=== PATIENT | male | born 1955 | race African-American/Black ===

== ENCOUNTER 2018-05-31 18:52 | Emergency (ER) | payer MEDICAID ==
[~2018-05-31] VITALS: Ht 175.3 cm; Wt 85.0 kg
[2018-06-01] MEDS ORDERED: IBUPROFEN 600MG TABLET PO ONE (00:30)
[2018-06-01 03:00] VITALS: BP 138/84
== END 2018-06-01 04:18 | disposition home or self-care (01) ==
LOC: ER 18:52
DX: M25.561 Pain in right knee (principal); I10 Essential (primary) hypertension
CPT/HCPCS: 73562; 99283; L1830; Z7610

== ENCOUNTER 2019-04-02 00:37 | Emergency (ER) | payer MEDICAID ==
[~2019-04-02] VITALS: Ht 177.8 cm; Wt 79.0 kg
[~2019-04-02 00:37] MED LIST: ABIL10 PO; CEPH-569 MT; SERT100T PO
[2019-04-02] MEDS ORDERED: HALOPERIDOL LACTATE 5MG/ML VIAL IM ONE (01:45)
[2019-04-02] MEDS ORDERED: LORAZEPAM 2MG/ML CPJ IM ONE (01:45)
[2019-04-02 06:40] LABS: BASOPHILS % 0.9 % (0.0-2.0); EOSINOPHILS % 2.7 % (0.0-5.0); HEMATOCRIT. 36.9 % (42.0-52.0); HEMOGLOBIN. 12.7 g/dL (14.0-18.0); LYMPHOCYTES % 27.7 % (20.0-50.0); MEAN CORPUSCULAR VOLUME 87.3 fL (80.0-94.0); MEAN PLATELET VOLUME 7.2 fl (7.4-10.4); MONOCYTES % 7.7 % (2.0-8.0); PLATELET 262 x1000/uL (130-400); RED BLOOD CELL COUNT 4.23 mill/uL (4.7-6.1); RED CELL DISTRIBUTION WIDTH 14.1 % (11.6-14.6)
[2019-04-02 06:50] LABS: CHLORIDE 110 mEq/L (98-107)
[2019-04-02 06:54] LABS: ETHANOL BLOOD < 10 mg/dL
[2019-04-02 07:10] LABS: CREATINE KINASE 1153 IU/L (39-308)
[2019-04-02 09:55] VITALS: BP 116/78
[2019-04-02 11:14] LABS: CLARITY URINE CLEAR (CLEAR); COLOR URINE YELLOW (YELLOW); KETONES URINE 1+ (NEGATIVE); LEUKOCYTE ESTERASE URINE NEGATIVE (NEGATIVE); NITRITE URINE NEGATIVE (NEGATIVE); OCCULT BLOOD URINE NEGATIVE (NEGATIVE); PH URINE 6.5 (4.5-8.0); PROTEIN URINE NEGATIVE (NEGATIVE); SPECIFIC GRAVITY URINE 1.013 (1.005-1.030); UROBILINOGEN URINE 0.2 E.U./dL (0.2-1.0)
[2019-04-02 11:50] LABS: *AMPHETAMINES SCREEN URINE NEGATIVE (NEGATIVE); *BARBITURATES SCREEN URINE NEGATIVE (NEGATIVE); *BENZODIAZEPINES SCREEN URINE PRESUMTIVE POSITIVE (NEGATIVE); CANNABINOID URINE SCREEN PRESUMTIVE POSITIVE (NEGATIVE)
[2019-04-02 11:51] LABS: METHADONE URINE SCREEN NEGATIVE (NEGATIVE)
[2019-04-02 11:52] LABS: PHENCYCLIDINE URINE SCREEN PRESUMTIVE POSITIVE (NEGATIVE)
[2019-04-02 11:53] LABS: *COCAINE SCREEN URINE NEGATIVE (NEGATIVE); OPIATES URINE SCREEN NEGATIVE (NEGATIVE)
== END 2019-04-02 12:06 | disposition home or self-care (01) ==
LOC: EDUNIT# 00:37 → ER 00:37
DX: R41.82 Altered mental status, unspecified (principal); F16.10 Hallucinogen abuse, uncomplicated; E11.9 Type 2 diabetes mellitus without complications; I10 Essential (primary) hypertension; Z86.73 Personal history of transient ischemic attack (TIA), and cerebral infarction without residual deficits; E03.9 Hypothyroidism, unspecified; Z79.899 Other long term (current) drug therapy
CPT/HCPCS: 36415; 80053; 80305; 80307; 80320; 80329; 81003; 82550; 83690; 85025; 96372; 99283; J1630; J2060; G0480

== ENCOUNTER 2019-05-21 21:15 | Emergency (ER) | payer MEDICAID ==
[~2019-05-21] VITALS: Ht 182.9 cm; Wt 86.0 kg
[2019-05-21] MEDS ORDERED: SODIUM CHLORIDE 0.9% 1,000 ML IV ONE (21:50)
[2019-05-21] MEDS ORDERED: ONDANSETRON HCL 4MG/2ML INJ IV STA (21:50)
[2019-05-21] MEDS ORDERED: LORAZEPAM 2MG/ML CPJ IV STA (21:50)
[2019-05-21 22:12] LABS: CHLORIDE 108 mEq/L (98-107)
[2019-05-21 22:16] LABS: ETHANOL BLOOD < 10 mg/dL
[2019-05-21 22:20] LABS: CREATINE KINASE 307 IU/L (39-308)
[2019-05-21] MEDS ORDERED: OLANZAPINE 10 MG/VIAL IM ONE (22:30)
[2019-05-22 00:06] LABS: *AMPHETAMINES SCREEN URINE NEGATIVE (NEGATIVE); *BARBITURATES SCREEN URINE NEGATIVE (NEGATIVE); *BENZODIAZEPINES SCREEN URINE NEGATIVE (NEGATIVE); *COCAINE SCREEN URINE PRESUMTIVE POSITIVE (NEGATIVE); METHADONE URINE SCREEN NEGATIVE (NEGATIVE); OPIATES URINE SCREEN NEGATIVE (NEGATIVE)
[2019-05-22 00:07] LABS: CANNABINOID URINE SCREEN PRESUMTIVE POSITIVE (NEGATIVE); PHENCYCLIDINE URINE SCREEN PRESUMTIVE POSITIVE (NEGATIVE)
[2019-05-22 00:11] LABS: BASOPHILS % 0.8 % (0.0-2.0); EOSINOPHILS % 4.4 % (0.0-5.0); HEMATOCRIT. 39.2 % (42.0-52.0); HEMOGLOBIN. 13.1 g/dL (14.0-18.0); LYMPHOCYTES % 24.8 % (20.0-50.0); MEAN CORPUSCULAR HEMOGLOBIN 29.3 pg (28.0-32.0); MEAN CORPUSCULAR VOLUME 87.4 fL (80.0-94.0); MEAN PLATELET VOLUME 7.2 fl (7.4-10.4); MONOCYTES % 7.4 % (2.0-8.0); NEUTROPHILS % 62.6 % (40.0-76.0); PLATELET 277 x1000/uL (130-400); RED BLOOD CELL COUNT 4.49 mill/uL (4.7-6.1); RED CELL DISTRIBUTION WIDTH 14.2 % (11.6-14.6)
[2019-05-22] MEDS ORDERED: LORAZEPAM 2MG/ML CPJ IV ONE (00:45)
[2019-05-22 09:28] VITALS: BP 125/68
== END 2019-05-22 11:20 | disposition home or self-care (01) ==
LOC: ER 21:19
DX: T40.991A Poisoning by other psychodysleptics [hallucinogens], accidental (unintentional), initial encounter (principal); F16.188 Hallucinogen abuse with other hallucinogen-induced disorder; G92 Toxic encephalopathy; T40.5X1A Poisoning by cocaine, accidental (unintentional), initial encounter; F14.188 Cocaine abuse with other cocaine-induced disorder; F10.10 Alcohol abuse, uncomplicated; F12.90 Cannabis use, unspecified, uncomplicated; Y92.89 Other specified places as the place of occurrence of the external cause
CPT/HCPCS: 36415; 70450; 71045; 80053; 80305; 80320; 82140; 82550; 84443; 84484; 85025; 93005; 96361; 96372; 96374; 96375; 96376; 99284; J2060; J2405; J3490; J7030; Z7610; G0480

== ENCOUNTER 2019-12-16 17:27 | Emergency (ER) | payer MEDICAID ==
[~2019-12-16] VITALS: Ht 175.3 cm; Wt 70.0 kg
[2019-12-16 18:48] LABS: EOSINOPHILS % 6.5 % (0.0-5.0); HEMOGLOBIN. 14.1 g/dL (14.0-18.0); LYMPHOCYTES % 26.5 % (20.0-50.0); MEAN CORPUSCULAR HEMOGLOBIN 29.8 pg (28.0-32.0); MEAN CORPUSCULAR VOLUME 86.7 fL (80.0-94.0); MEAN PLATELET VOLUME 7.7 fl (7.4-10.4); MONOCYTES % 5.6 % (2.0-8.0); NEUTROPHILS % 60.4 % (40.0-76.0); PLATELET 243 x1000/uL (130-400); RED BLOOD CELL COUNT 4.73 mill/uL (4.7-6.1); RED CELL DISTRIBUTION WIDTH 14.6 % (11.6-14.6)
[2019-12-16 18:54] LABS: CHLORIDE 107 mEq/L (98-107)
[2019-12-16 20:45] VITALS: BP 141/81
== END 2019-12-16 21:06 | disposition home or self-care (01) ==
LOC: ER 17:27
DX: Z00.00 Encounter for general adult medical examination without abnormal findings (principal); I10 Essential (primary) hypertension; E11.9 Type 2 diabetes mellitus without complications; E03.9 Hypothyroidism, unspecified; Z86.73 Personal history of transient ischemic attack (TIA), and cerebral infarction without residual deficits; Z79.899 Other long term (current) drug therapy
CPT/HCPCS: 36415; 80053; 83880; 84484; 85025; 93005; 99284

== ENCOUNTER 2020-03-08 11:05 | Emergency (ER) | payer OTHER, MEDICAID ==
[~2020-03-08] VITALS: Ht 185.4 cm; Wt 91.0 kg
[2020-03-08 13:55] VITALS: BP 158/99
== END 2020-03-08 13:57 | disposition home or self-care (01) ==
LOC: ER 11:18
DX: Z02.2 Encounter for examination for admission to residential institution (principal); F16.180 Hallucinogen abuse with hallucinogen-induced anxiety disorder; I10 Essential (primary) hypertension
CPT/HCPCS: 99283